=== PATIENT | male | born 1975 | race Caucasian/White ===

== ENCOUNTER 2018-10-06 21:18 | Emergency (ER) | payer MEDICAID ==
[2018-10-06 21:18] VITALS: BMI 25.8
[2018-10-06 21:33] VITALS: BP 109/74; PULSE 70; RESP 20; TEMP 98.4; O2SAT 96
--- NOTE | 2018-10-06 23:16 | C.PDOC ---
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 Denies chest pain or SOB. Time Seen by Provider: 10/06/18 22:16 Chief Complaint (Nursing): Upper Extremity Problem/Injury History Per: Patient History/Exam Limitations: no limitations Onset/Duration Of Symptoms: Days Current Symptoms Are (Timing): Still Present Recent travel outside of the [place]: No Past Medical History Reviewed: Historical Data, Nursing Documentation, Vital Signs Vital Signs: Last Vital Signs Temp 98.4 F 10/06/18 21:30 Pulse 70 10/06/18 21:30 Resp 20 10/06/18 21:30 BP 109/74 10/06/18 21:30 Pulse Ox 96 10/06/18 21:30 Primary Care Provider: Jaime Monreal - Medical History PMH: Fractures Denies: Chronic Kidney Disease Family History: States: Unknown Family Hx - Social History Hx Tobacco Use: No Hx Alcohol Use: Yes Hx Substance Use: No Review Of Systems Cardiovascular: Negative for: Chest Pain Respiratory: Negative for: Cough, Shortness of Breath Musculoskeletal: Positive for: Neck Pain Neurological: Negative for: Weakness, Numbness Physical Exam - Physical Exam Appears: Non-toxic Skin: Normal Color, Warm Head: Atraumatic, Normacephalic Eye(s): bilateral: Normal Inspection Neck: No Midline Cervical Tenderness, Other (Tenderness to left trapezius) Extremity: Normal ROM (x4), Other (Tenderness to left deltoid) Pulses: Left Radial: Normal, Right Radial: Normal Neurological/Psych: Oriented x3, Normal Speech, Normal Motor, Normal Sensation ED Course And Treatment O2 Sat by Pulse Oximetry: 96 (Room air) Pulse Ox Interpretation: Normal Progress Note: Cervical spine x-ray ordered, however, patient states he needs to leave to pickle maker his child. Patient left prior to imaging and treatment. Disposition - Disposition Disposition: ELOPEMENT - ER ONLY Disposition Time: 23:16 Condition: STABLE Forms: [facility] (Amharic) - Clinical Impression Clinical Impression: Cervical radiculopathy - PA / [employer] RECONDITIONING / Resident Statement MD/DO has reviewed & agrees with the documentation as recorded. - Scribe Statement The provider has reviewed the documentation as recorded by the Scribgray Ceballos All medical record entries made by the Scribe were at my direction and personally dictated by me. I have reviewed the chart and agree that the record accurately reflects my personal performance of the history, physical exam, medical decision making, and the department course for this patient. I have also personally directed, reviewed, and agree with the discharge instructions and disposition.
== END 2018-10-06 23:15 | disposition left against medical advice (07) ==
LOC: C.ER 21:18
DX: M54.12 Radiculopathy, cervical region (principal)